=== PATIENT | female | born 1970 | race African-American/Black ===

== ENCOUNTER 2020-10-13 11:50 | Emergency (ER) | payer MEDICAID ==
[~2020-10-13] VITALS: Ht 170.2 cm; Wt 90.0 kg
[2020-10-13] MEDS ORDERED: PREDNISONE 20MG TABLET PO ONE (12:15)
[2020-10-13] MEDS ORDERED: ALBUTEROL 6.7GM HFA INHALER ORI ONE (12:15)
[2020-10-13] MEDS ORDERED: ALBU18HF2 IH (15:12)
[2020-10-13] MEDS ORDERED: DOXY150T9 MT (15:12)
[2020-10-13] MEDS ORDERED: PRED10TA23 MT (15:12)
[2020-10-13 15:15] VITALS: BP 132/79
[2020-10-13] MEDS ORDERED: DOXYCYCLINE HYCLATE 100MG CAPSULE PO NR (15:15)
== END 2020-10-13 15:15 | disposition home or self-care (01) ==
LOC: ER 12:13
DX: R05 Cough (principal); J45.901 Unspecified asthma with (acute) exacerbation; Z87.891 Personal history of nicotine dependence
CPT/HCPCS: 71045; 99283; J7512; Z7610

== ENCOUNTER 2023-09-27 19:55 | Emergency (ER) | payer MEDICAID ==
[~2023-09-27] VITALS: Ht 167.6 cm; Wt 95.0 kg
[~2023-09-27 19:55] MED LIST: ALBU18HF2 IH; DOXY150T9 MT; PRED10TA23 MT
[2023-09-27 20:13] VITALS: BP 113/86; PULSE 98; RESP 18; TEMP 98.5; O2SAT 96
[2023-09-27] MEDS ORDERED: PREDNISONE 20MG TABLET PO STA (21:08)
[2023-09-27] MEDS ORDERED: ALBUTEROL (0.083%) 2.5MG/3ML NEB HHN ONE (21:15)
== END 2023-09-27 23:19 | disposition left against medical advice (07) ==
LOC: ER 20:15
DX: R07.89 Other chest pain (principal); R06.02 Shortness of breath; J45.909 Unspecified asthma, uncomplicated; Z98.890 Other specified postprocedural states
CPT/HCPCS: 93005; 99283